=== PATIENT | male | born 1965 | race Caucasian/White ===

== ENCOUNTER 2019-11-27 16:53 | Emergency (ER) | payer OTHER ==
--- NOTE | 2019-11-27 17:22 | ED Physician Documentation ---
History of Present Illness - Stated complaint Stated Complaint: RT HAND INJ - Chief complaint Chief Complaint: Trauma Ext - History obtained from History obtained from: Patient (54-year-old male patient comes in today with chief complaint of right wrist and hand pain, secondary to fall on outstretched hand. The pt is left hand dominant. The patient was up on a ladder trimming some bushes for his parents, with a ladder started falling to the right patient jumped to the left and then sustained injury date. Patient states approximately 10 foot drop to the ground. He denies hitting his head, having any loss of consciousness, denies pain anywhere else. Patient is unable to flex or extend, medial or laterally flex his wrist. No other complaints today) Review of Systems Cardiac: denies: Chest pain / pressure, Palpitations Respiratory: denies: Dyspnea, Cough, Wheezing Skin: denies: Rash, Lesions, Laceration (s) Musculoskeletal: reports: Extremity pain (right wrist and hand pain and edema.) PD PAST MEDICAL HISTORY - Past Medical History Past Medical History: No - Past Surgical History Past Surgical History: No - Allergies Allergies/Adverse Reactions: Allergies Allergy/AdvReac Type Severity Reaction Status Date / Time Penicillins Allergy Unknown Verified 11/27/19 16:58 - Social History Does the pt smoke?: No Smoking Status: Never smoker Does the pt drink ETOH?: Yes Does the pt have substance abuse?: No - Immunizations Immunizations are current?: No PD ED PE NORMAL - General General: Alert and oriented X 3, No acute distress - HEENT HEENT: Atraumatic, PERRL, EOMI - Respiratory Respiratory: No respiratory distress - Derm Derm: Warm and dry, No rash - Neuro Neuro: Alert and oriented X 3 PD ED PE EXPANDED - Extremities Extremities: Right wrist (edema, TTP, decreased flexion, extension, lateral or medial flexion of wrist. ), Left hand (edema, hematoma, & TTP to metacarpals 2, 3, 4. ) Results - Vitals Vitals: Vital Signs - 24 hr 11/27/19 16:58 Temperature 36.6 C Heart Rate 86 Respiratory 16 Rate Blood Pressure 164/81 H O2 Saturation 95 Oxygen O2 Source Room air - Rads (name of study) No standard instances Radiology: Final report received, See rad report PD MEDICAL DECISION MAKING - ED course Complexity details: reviewed results, re-evaluated patient, d/w patient Departure - Departure Disposition: 01 Home, Self Care Clinical Impression: Wrist fracture, right Qualifiers: Encounter type: initial encounter Fracture type: closed Qualified Code(s): S62.101A - Fracture of unspecified carpal bone, right wrist, initial encounter for closed fracture Condition: Good Instructions: ED Fx Wrist Ch, ED Splint Care Fiberglass Comments: Keep the splint on your right wrist here until you follow-up with orthopedics. Call orthopedics tomorrow to set up an appointment for follow-up in the next week to 10 days; their phone number is . You can use Tylenol for pain control, taking it every 4 hours. Try to keep your hand elevated to heart level when walking around. You can apply ice to the top of the splint tonight to help reduce swelling.
--- NOTE | 2019-11-27 18:07 | XRAY Report ---
Reason: FOOSH Procedure Date: 11/27/2019 Accession Number: [id number] / [id number] Procedure: XR - Hand 3 View RT CPT Code: Final Report FULL RESULT: EXAM: RIGHT HAND RADIOGRAPHY EXAM DATE: 11/27/2019 05:49 PM. CLINICAL HISTORY: FOOSH. Fall off 10 foot ladder. Hand and wrist pain. COMPARISON: None. TECHNIQUE: 3 views. FINDINGS: Bones: Osteopenia. 4 mm curvilinear avulsion fracture at the dorsal aspect of the triquetral. Subtle trabecular distortion partially visualized at the distal radial metaphysis. Please see dedicated wrist radiographs. Joints: Alignment anatomic. Scattered degenerative changes, moderate at the first carpometacarpal joint. Mild to moderate degenerative changes at the interphalangeal joints. Soft Tissues: Mild to moderate soft tissue swelling dorsally. 3 mm curvilinear radiodense foreign body ejecting in the soft tissues over the volar aspect fourth and fifth metacarpal bases. IMPRESSION: 1. Osteopenia. 2. Mildly displaced avulsion fracture at the dorsal triquetral. 3. Possible impaction fracture distal radial metaphysis partially visualized. 4. Mild to moderate soft tissue swelling. 5. 3 mm radiodense foreign body over the volar aspect fourth and fifth metacarpal bases. RADIA
--- NOTE | 2019-11-27 18:10 | XRAY Report ---
Reason: FOOSH Procedure Date: 11/27/2019 Accession Number: [id number] / [id number] Procedure: XR - Wrist 4 View RT CPT Code: Final Report FULL RESULT: EXAM: RIGHT WRIST RADIOGRAPHY EXAM DATE: 11/27/2019 05:49 PM. CLINICAL HISTORY: FOROSELINE. Fall off 10 foot ladder. Hand and wrist pain. COMPARISON: None. TECHNIQUE: 4 views. FINDINGS: Bones: Osteopenia. 4 mm curvilinear avulsion fracture fragment displaced up to 3 mm from the dorsal aspect of the triquetral. Trabecular distortion projects transversely through the distal radial metaphysis with mild contour deformity dorsally. Joints: Moderate degenerative changes with osseous fragmentation first carpometacarpal joint. Alignment anatomic. Soft Tissues: Mild to moderate soft tissue swelling dorsally, most prominent over the carpus. 3 mm radiopaque foreign body projects in the soft tissues over the volar aspect fourth and fifth metacarpal bases. IMPRESSION: 1. Osteopenia. 2.4 mm avulsion fracture dorsal aspect triquetral. 3. Possible subtle impaction fracture distal radial metaphysis versus projection. Recommend correlate with pain at this site. 4. Mild to moderate soft tissue swelling. 5. 3 mm radiopaque foreign body volar aspect fourth and fifth metacarpal bases. RADIA
[2019-11-27 18:37] VITALS: BP 120/86
== END 2019-11-27 18:36 | disposition home or self-care (01) ==
LOC: ED 16:53
DX: S62.111A Displaced fracture of triquetrum [cuneiform] bone, right wrist, initial encounter for closed fracture (principal); W11.XXXA Fall on and from ladder, initial encounter; Y93.H2 Activity, gardening and landscaping; Y92.007 Garden or yard of unspecified non-institutional (private) residence as the place of occurrence of the external cause
CPT/HCPCS: 99283

== ENCOUNTER 2019-12-06 11:04 | Outpatient (CLI) | payer OTHER ==
--- NOTE | 2019-12-06 15:22 | XRAY Report ---
Reason: FRACTURE OF UNSPECIFIED CARPAL BONE, RT WRIST Procedure Date: 12/06/2019 Accession Number: [id number] / [id number] Procedure: XR - Wrist 3 View RT CPT Code: Final Report FULL RESULT: EXAM: RIGHT WRIST RADIOGRAPHY EXAM DATE: 12/06/2019 11:09 AM. CLINICAL HISTORY: Fracture of unspecified carpal bone, right wrist. COMPARISON: WRIST 3 VIEW RT 11/27/2019 5:17 PM. TECHNIQUE: 3 views. FINDINGS: Right wrist now in a cast. Previously identified avulsion fracture fragment dorsal to the wrist is not well seen on current exam. Radiopaque foreign body anterior proximal hand as before. Alignment appears within normal limits. No new fractures identified. IMPRESSION: Normal alignment. RADIA
== END 2019-12-06 11:05 | disposition home or self-care (01) ==
LOC: DI 11:04
PROVIDERS: ATTEND Orthopaedic Surgery Sports Medicine
DX: S62.101A Fracture of unspecified carpal bone, right wrist, initial encounter for closed fracture (principal)

== ENCOUNTER 2021-06-04 15:40 | Outpatient (CLI) | payer OTHER | END 2021-06-04 15:41 | disposition home or self-care (01) | LOC: COV 15:40 | PROVIDERS: ATTEND Family Medicine | DX: Z20.822 Contact with and (suspected) exposure to COVID-19 (principal) ==